=== PATIENT | female | born 1985 | race Caucasian/White ===

== ENCOUNTER 2019-04-06 20:06 | Emergency (ER) | payer OTHER ==
[2019-04-06] MEDS ORDERED: SODIUM CHLORIDE 0.9% 1,000 ML IV STA (20:54)
[2019-04-06 21:37] LABS: Basophils % (A) 0 %; Eosinophils % (A) 0 %; HGB 14.9 gm/dL (11.4-16.0); Lymphocytes % (A) 14 %; MCH 33.4 pg (25.0-35.0); MCHC 35.6 g/dL (31.0-37.0); MCV 93.8 fL (80.0-100.0); Mean Platelet Volume 7.1; Monocytes % (A) 4 %; Neutrophils % (A) 81 %; Platelet Count 263 k/uL (150-450); RBC 4.48 m/uL (3.80-5.40); WBC 12.8 k/uL (3.8-10.6)
[2019-04-06 21:38] LABS: Eosinophils # (A) 0.1 k/uL (0-0.7); Lymphocytes # (A) 1.7 k/uL (1.0-4.8); Monocytes # (A) 0.5 k/uL (0-1.0); Neutrophils # (A) 10.4 k/uL (1.3-7.7)
--- NOTE | 2019-04-06 21:39 | ED ---
General Adult HPI - General Source: patient Mode of arrival: ambulatory Limitations: no limitations <Yancy Rubalcava - Last Filed: 04/07/19 00:41> <Clarisse Estrella - Last Filed: 04/07/19 14:04> - General Chief complaint: ENT Stated complaint: Anxiety/Swollen Tongue Time Seen by Provider: 04/06/19 20:38 - History of Present Illness Initial comments: 34-year-old female patient presents to the emergency department today for evaluation for possible seizure. Patient states over the last several weeks she has been experiencing these anxiety episodes that will cause an odd feeling in her head, nausea, and a nervous feeling in her abdomen. States that she did recently see a neurologist who believes she may be having seizure-like episodes. States he had episode in the past where her daughter reported she had been shaking and foaming at the mouth. Patient states that her physician has switched her recently from Cymbalta to Lexapro. Patient is currently receiving treatment at [facility] for alcohol dependence. She has been there for the last 5 days. Patient states she woke this morning with a sore painful tongue. She is concerned she may have had a seizure in her sleep causing her to bite her tongue. Patient does report headache today. Denies any blurred or double vision. Denies numbness, tingling, or weakness to her extremities. Denies any recent head injury. She did have MRI 02/07/19 to evaluate these episodes. Patient states she did have a period where the symptoms stopped after the MRI, then started again 2 days ago. Patient denies any recent rash, fever, chills, shortness breath, chest pain, diarrhea, constipation, back pain, dizziness, weakness, hematuria, dysuria, urinary urgency, urinary frequency, or any other complaints. (Yancy Rubalcava) - Related Data Home Medications Medication Instructions Recorded Confirmed Acetaminophen [Tylenol] 650 mg PO Q4H PRN 04/06/19 04/06/19 Escitalopram Oxalate [Lexapro] 10 mg PO DAILY 04/06/19 04/06/19 Ibuprofen [Motrin] 600 mg PO Q6HR PRN 04/06/19 04/06/19 Multivitamins, Thera [Multivitamin 1 tab PO DAILY 04/06/19 04/06/19 (formulary)] Thiamine [Vitamin B-1] 100 mg PO DAILY 04/06/19 04/06/19 busPIRone HCl [Buspar] 10 mg PO TID PRN 04/06/19 04/06/19 traZODone HCL [Trazodone HCl] 50 mg PO HS 04/06/19 04/06/19 Previous Rx's Medication Instructions Recorded Ergotamine Tartrate/Caffeine 1 each PO DAILY PRN #10 tablet 04/06/19 [Cafergot Tablet] Allergies Allergy/AdvReac Type Severity Reaction Status Date / Time No Known Allergies Allergy Verified 04/06/19 21:15 Review of Systems ROS Other: All systems not noted in ROS Statement are negative. <Yancy Rubalcava - Last Filed: 04/07/19 00:41> ROS Other: All systems not noted in ROS Statement are negative. <Clarisse Estrella - Last Filed: 04/07/19 14:04> ROS Statement: Those systems with pertinent positive or pertinent negative responses have been documented in the HPI. Past Medical History Past Medical History: No Reported History Additional Past Medical History / Comment(s): ETOH abuse History of Any Multi-Drug Resistant Organisms: None Reported Additional Past Surgical History / Comment(s): hip surg Past Psychological History: Anxiety Smoking Status: Current every day smoker Past Alcohol Use History: Abuse Past Drug Use History: Marijuana <Yancy Rubalcava - Last Filed: 04/07/19 00:41> General Exam Limitations: no limitations General appearance: alert, in no apparent distress, other (This is a well- developed, well-nourished adult female patient in no acute distress. Vital signs upon presentation are temperature 98.5F, pulse 118, respirations 20, blood pressure 130/95, pulse ox 99% on room air.) Eye exam: Present: normal appearance, PERRL, EOMI. Absent: scleral icterus, conjunctival injection, periorbital swelling ENT exam: Present: normal exam, normal oropharynx, mucous membranes moist Respiratory exam: Present: normal lung sounds bilaterally. Absent: respiratory distress, wheezes, rales, rhonchi, stridor Cardiovascular Exam: Present: regular rate, normal rhythm, normal heart sounds. Absent: systolic murmur, diastolic murmur, rubs, gallop, clicks GI/Abdominal exam: Present: soft, normal bowel sounds. Absent: distended, t enderness, guarding, rebound, rigid Neurological exam: Present: alert, oriented X3, CN II-XII intact Psychiatric exam: Present: normal affect, normal mood Skin exam: Present: warm, dry, intact, normal color. Absent: rash <Yancy Rubalcava - Last Filed: 04/07/19 00:41> Course Vital Signs 04/06/19 04/06/19 20:22 22:00 Temperature 98.5 F 98.8 F Pulse Rate 118 H 98 Respiratory 20 18 Rate Blood Pressure 130/95 143/94 O2 Sat by Pulse 99 99 Oximetry EKG Findings - EKG Comments: EKG Findings:: EKG obtained at 8 shows normal sinus rhythm with a ventricular rate of 90, UT interval 166, QRS duration 96, QT 362, QTc 442. No evidence of ST elevation or depression. <Yancy Rubalcava - Last Filed: 04/07/19 00:41> Medical Decision Making - Lab Data Result diagrams: 04/06/19 21:15 04/06/19 21:15 <Yancy Rubalcava - Last Filed: 04/07/19 00:41> - Lab Data Result diagrams: 04/06/19 21:15 04/06/19 21:15 <Clarisse Estrella - Last Filed: 04/07/19 14:04> - Medical Decision Making 34-year-old female patient percents to the emergency department today for evaluation of increased anxiety and possible seizures. Physical examination does reveal trauma to the tongue. She is neurologically intact with no focal deficits. Labs reviewed and are unremarkable. EKG showed normal sinus rhythm. I did discuss findings and results with the patient. We did discuss possibility of seizures however official diagnosis cannot be made with today's testing. She did have MRI in January, results from [facility] in [place] were reviewed, the result was normal. We also discussed withdrawal as a cause for her symptoms as she is currently at [facility] for alcohol detox. She is also taking new medications both given by the facility and her primary care physician. We discussed side effects as a possible cause. She is instructed to follow-up with her primary care physician and her neurologist for further evaluation as soon as possible. Return parameters were discussed in detail. She verbalizes understanding and agrees with this plan. (Yancy Rubalcava) I was available for consultation in the emergency department. The history and physical exam were done by the midlevel provider. I was consulted for this patient's care. I reviewed the case with the midlevel provider and based on their presentation of the patient, I agree with the assessment, medical decision making and plan of care as documented. Chart was dictated using [employer] dictation software. Attempts were made to correct any dictation errors however some typographical errors may persist. (Clarisse Estrella) - Lab Data Lab Results 04/06/19 04/06/19 04/06/19 Range/Units 19:45 21:15 21:15 WBC 12.8 H (3.8-10.6) k/uL RBC 4.48 (3.80-5.40) m/uL Hgb 14.9 (11.4-16.0) gm/dL Hct 42.0 (34.0-46.0) % MCV 93.8 (80.0-100.0) fL MCH 33.4 (25.0-35.0) pg MCHC 35.6 (31.0-37.0) g/dL RDW 14.0 (11.5-15.5) % Plt Count 263 (150-450) k/uL Neutrophils % 81 % Lymphocytes % 14 % Monocytes % 4 % Eosinophils % 0 % Basophils % 0 % Neutrophils # 10.4 H (1.3-7.7) k/uL Lymphocytes # 1.7 (1.0-4.8) k/uL Monocytes # 0.5 (0-1.0) k/uL Eosinophils # 0.1 (0-0.7) k/uL Basophils # 0.0 (0-0.2) k/uL Sodium 138 (137-145) mmol/L Potassium 3.9 (3.5-5.1) mmol/L Chloride 102 (98-107) mmol/L Carbon Dioxide 24 (22-30) mmol/L Anion Gap 12 mmol/L BUN 9 (7-17) mg/dL Creatinine 0.71 (0.52-1.04) mg/dL Est GFR (CKD-EPI)AfAm >90 (>60 ml/min/1.73 sqM) Est GFR (CKD-EPI)NonAf >90 (>60 ml/min/1.73 sqM) Glucose 91 (74-99) mg/dL Plasma Lactic Acid Newton (0.7-2.0) mmol/L Calcium 10.0 (8.4-10.2) mg/dL Total Bilirubin 0.9 (0.2-1.3) mg/dL AST 35 (14-36) U/L ALT 22 (9-52) U/L Alkaline Phosphatase 69 (38-126) U/L Total Protein 7.7 (6.3-8.2) g/dL Albumin 4.8 (3.5-5.0) g/dL Urine Color Yellow Urine Appearance Clear (Clear) Urine pH 6.0 (5.0-8.0) Ur Specific [place] 1.022 (1.001-1.035) Urine Protein Trace H (Negative) Urine Glucose (UA) Negative (Negative) Urine Ketones 3+ H (Negative) Urine Blood Negative (Negative) Urine Nitrite Negative (Negative) Urine Bilirubin Negative (Negative) Urine Urobilinogen 2.0 (<2.0) mg/dL Ur Leukocyte Esterase Negative (Negative) Urine Opiates Screen Not Detected (NotDetected) Ur Oxycodone Screen Not Detected (NotDetected) Urine Methadone Screen Not Detected (NotDetected) Ur Propoxyphene Screen Not Detected (NotDetected) Ur Barbiturates Screen Not Detected (NotDetected) U Tricyclic Antidepress Not Detected (NotDetected) Ur Phencyclidine Scrn Not Detected (NotDetected) Ur Amphetamines Screen Not Detected (NotDetected) U Methamphetamines Scrn Not Detected (NotDetected) U Benzodiazepines Scrn Not Detected (NotDetected) Urine Cocaine Screen Not Detected (NotDetected) U Marijuana (THC) Screen Detected H (NotDetected) 04/06/19 Range/Units 21:15 WBC (3.8-10.6) k/uL RBC (3.80-5.40) m/uL Hgb (11.4-16.0) gm/dL Hct (34.0-46.0) % MCV (80.0-100.0) fL MCH (25.0-35.0) pg MCHC (31.0-37.0) g/dL RDW (11.5-15.5) % Plt Count (150-450) k/uL Neutrophils % % Lymphocytes % % Monocytes % % Eosinophils % % Basophils % % Neutrophils # (1.3-7.7) k/uL Lymphocytes # (1.0-4.8) k/uL Monocytes # (0-1.0) k/uL Eosinophils # (0-0.7) k/uL Basophils # (0-0.2) k/uL Sodium (137-145) mmol/L Potassium (3.5-5.1) mmol/L Chloride (98-107) mmol/L Carbon Dioxide (22-30) mmol/L Anion Gap mmol/L BUN (7-17) mg/dL Creatinine (0.52-1.04) mg/dL Est GFR (CKD-EPI)AfAm (>60 ml/min/1.73 sqM) Est GFR (CKD-EPI)NonAf (>60 ml/min/1.73 sqM) Glucose (74-99) mg/dL Plasma Lactic Acid Newton 0.7 (0.7-2.0) mmol/L Calcium (8.4-10.2) mg/dL Total Bilirubin (0.2-1.3) mg/dL AST (14-36) U/L ALT (9-52) U/L Alkaline Phosphatase (38-126) U/L Total Protein (6.3-8.2) g/dL Albumin (3.5-5.0) g/dL Urine Color Urine Appearance (Clear) Urine pH (5.0-8.0) Ur Specific [place] (1.001-1.035) Urine Protein (Negative) Urine Glucose (UA) (Negative) Urine Ketones (Negative) Urine Blood (Negative) Urine Nitrite (Negative) Urine Bilirubin (Negative) Urine Urobilinogen (<2.0) mg/dL Ur Leukocyte Esterase (Negative) Urine Opiates Screen (NotDetected) Ur Oxycodone Screen (NotDetected) Urine Methadone Screen (NotDetected) Ur Propoxyphene Screen (NotDetected) Ur Barbiturates Screen (NotDetected) U Tricyclic Antidepress (NotDetected) Ur Phencyclidine Scrn (NotDetected) Ur Amphetamines Screen (NotDetected) U Methamphetamines Scrn (NotDetected) U Benzodiazepines Scrn (NotDetected) Urine Cocaine Screen (NotDetected) U Marijuana (THC) Screen (NotDetected) Disposition Is patient prescribed a controlled substance at d/c from ED?: No Time of Disposition: 22:12 <Yancy Rubalcava - Last Filed: 04/07/19 00:41> <Rob Estrellaah Ale - Last Filed: 04/07/19 14:04> Clinical Impression: Tongue biting, Seizure, Anxiety Disposition: HOME SELF-CARE Condition: Good Instructions (If sedation given, give patient instructions): Recurrent Seizures in Adults (ED), Anxiety (ED) Additional Instructions: Follow-up with your primary care physician and neurologist for reevaluation as soon as possible. Do not drive or operate heavy machinery until cleared by the neurologist. Return to the emergency department immediately for any new, worsening, or concerning symptoms. Prescriptions: Ergotamine Tartrate/Caffeine [Cafergot Tablet] 1 each PO DAILY PRN #10 tablet PRN Reason: Headache Referrals: Nonstaff,Physician [Primary Care Provider] - 1-2 days
[2019-04-06 21:47] LABS: ALT 22 U/L (9-52); AST 35 U/L (14-36); African American GFR (CKD) >90 (>60 ml/min/1.73 sqM); Albumin 4.8 g/dL (3.5-5.0); Alkaline Phosphatase 69 U/L (38-126); Anion Gap 12 mmol/L; Blood Urea Nitrogen 9 mg/dL (7-17); Carbon Dioxide 24 mmol/L (22-30); Chloride 102 mmol/L (98-107); Glucose 91 mg/dL (74-99); Potassium 3.9 mmol/L (3.5-5.1); Sodium 138 mmol/L (137-145); Total Bilirubin 0.9 mg/dL (0.2-1.3); Total Protein 7.7 g/dL (6.3-8.2)
[2019-04-06 21:52] LABS: Appearance,Urine Clear (Clear); Bilirubin,Urine Negative (Negative); Blood,Urine Negative (Negative); Color,Urine Yellow; Glucose,Urine (UA) Negative (Negative); Ketones,Urine 3+ (Negative); Leukocyte Esterase,Urine Negative (Negative); Nitrite,Urine Negative (Negative); Protein,Urine Trace (Negative); Specific Gravity,Urine 1.022 (1.001-1.035)
[2019-04-06 22:03] LABS: Amphetamine Screen,Urine Not Detected (NotDetected); Barbiturate Screen,Urine Not Detected (NotDetected); Benzodiazepines Screen,Urine Not Detected (NotDetected); Cocaine Screen,Urine Not Detected (NotDetected); Methadone Screen, Urine Not Detected (NotDetected); Opiate Screen,Urine Not Detected (NotDetected); Oxycodone Screen, Urine Not Detected (NotDetected); Phencyclidine Screen,Urine Not Detected (NotDetected); Tricyclic Antidepressant,Urine Not Detected (NotDetected); Urn Cannabinoid Scrn Detected (NotDetected)
[2019-04-06 22:04] VITALS: BP 143/94; PULSE 98; RESP 18; TEMP 98.8
== END 2019-04-06 22:42 | disposition home or self-care (01) ==
LOC: EC 20:06
DX: F41.9 Anxiety disorder, unspecified (principal); R56.9 Unspecified convulsions; S09.8XXA Other specified injuries of head, initial encounter; F10.20 Alcohol dependence, uncomplicated; R51 Headache; F17.200 Nicotine dependence, unspecified, uncomplicated; Z79.899 Other long term (current) drug therapy; X58.XXXA Exposure to other specified factors, initial encounter
CPT/HCPCS: 36415; 80053; 80306; 81003; 83605; 85025; 93005; 96360; 99283